=== PATIENT | female | born 1950 | race African-American/Black ===

== ENCOUNTER 2022-11-14 14:17 | Inpatient (IN) | payer MEDICARE, OTHER ==
[~2022-11-14] VITALS: Ht 165.1 cm; Wt 99.5 kg
[~2022-11-14 14:17] MED LIST: FER325T PO; HYDR12.56 PO; OME20T PO; POTA10IN IV; POTA10TA32 PO
[2022-11-14] MEDS ORDERED: methylPREDNISolone SOD SUCC 125 MG/2 ML VL IV ONE (14:30)
[2022-11-14] MEDS ORDERED: LORazepam 2MG/ML-1ML VIAL IV ONE (14:30)
[2022-11-14] MEDS ORDERED: ADENOSINE 6 MG/2 ML INJ IV ONE ×4 (14:45→15:00)
[2022-11-14] MEDS ORDERED: IOHEXOL 350 MG/ML 100ML IJ ONE (14:58)
[2022-11-14] MEDS ORDERED: METOPROLOL TARTRATE 1MG/1ML-5ML VIAL IV ONE ×2 (15:00→15:01)
[2022-11-14] MEDS ORDERED: MAGNESIUM SULFATE 1GM/100ML 100 ML IV ONE (15:00)
[2022-11-14] MEDS ORDERED: ENOXAPARIN SOD 40 MG/0.4 ML SYRINGE SC ONE (15:15)
[2022-11-14] MEDS ORDERED: ASPirin 81 mg TAB PO ONE (15:15)
[2022-11-14] MEDS ORDERED: METOPROLOL SUCCINATE XL 50 MG TAB PO ONE (15:15)
[2022-11-14] MEDS ORDERED: SODIUM CHLORIDE 0.9% 500 ML IV ONE (15:45)
[2022-11-14 15:55] LABS: Alanine Aminotransferase 22 U/L (13-56); Anion Gap 14 (5-15); Aspartate Aminotransferase 22 U/L (15-37); BUN/Creatinine Ratio 13.3 (10.0-20.0); Blood Urea Nitrogen 17 mg/dL (7-18); Calcium 9.3 mg/dL (8.5-10.1); Carbon Dioxide 17 mmol/L (21-32); Chloride 107 mmol/L (98-107); GFR African American 53 mL/min; GFR Non-African American 44 mL/min; Glucose 98 mg/dL (74-106); Magnesium 1.9 mg/dL (1.6-2.6); Potassium 3.3 mmol/L (3.5-5.1); Sodium 138 mmol/L (136-145)
[2022-11-14 15:58] LABS: Alkaline Phosphatase 85 U/L (45-117); Bilirubin, Total 0.9 mg/dL (0.2-1.0); Total Protein 8.3 g/dL (6.4-8.2)
[2022-11-14 16:32] LABS: Basophils # (auto) 0.1 10 ^3/uL (0-0.2); Basophils % (auto) 1.2 % (0.0-2.0); Eosinophils # (auto) 0 10 ^3/uL (0-0.8); Eosinophils % (auto) 0.7 % (0.0-7.0); Hematocrit 36.8 % (36.0-46.0); Hemoglobin 11.4 g/dL (12.2-16.2); Lymphocytes # (auto) 1.4 10 ^3/uL (0.4-5.4); Lymphocytes % (auto) 20.4 % (10.0-50.0); Mean Corpuscular Volume 74.3 fL (80.0-100.0); Monocytes # (auto) 0.6 10 ^3/uL (0-1.3); Monocytes % (auto) 8.8 % (0.0-12.0); Neutrophils # (auto) 4.6 10 ^3/uL (1.6-8.6); Neutrophils % (auto) 68.9 % (37.0-80.0); Nucleated Red Blood Cells % 0.4 %; Red Blood Cells 4.95 10^6/uL (4.0-5.20); Red Cell Distribution Width 15.9 % (11.8-14.3); White Blood Cell 6.7 10^3/uL (4.4-10.8)
[2022-11-14 16:55] LABS: Cholesterol 160 mg/dL (< 200)
[2022-11-14 16:58] LABS: HDL Cholesterol 71 mg/dL (40-59); LDL Cholesterol 80 mg/dL (< 100); Triglycerides 99 mg/dL (< 150)
[2022-11-14] MEDS ORDERED: POTASSIUM CHL 20MEQ/100ML 100 ML IV ONE (17:15)
[2022-11-14] MEDS ORDERED: NITROGLYCERIN 0.4 MG SL TAB SL PRN (19:15)
[2022-11-14] MEDS ORDERED: ACETAMINOPHEN 325 MG TAB PO PRN (19:15)
[2022-11-14] MEDS ORDERED: MORPHINE SULFATE INJ 2 MG/ml SYRG IV PRN (19:15)
[2022-11-15] MEDS: ACETAMINOPHEN 325 MG TAB PO PRN ×2 (00:42→13:41)
[2022-11-15] MEDS ORDERED: TRAZ50TA2 PO (02:54)
[2022-11-15] MEDS ORDERED: ATOR20TA50 PO (02:54)
[2022-11-15] MEDS ORDERED: GABA300C10 PO (02:54)
[2022-11-15] MEDS ORDERED: DULO20CA PO (02:54)
[2022-11-15] MEDS ORDERED: METO25TA5 PO (02:54)
[2022-11-15] MEDS ORDERED: CLOP75TA70 PO (02:54)
[2022-11-15] MEDS ORDERED: BUSP5TAB51 PO ×2 (02:54)
[2022-11-15] MEDS ORDERED: METH750T22 PO (02:54)
[2022-11-15] MEDS ORDERED: GLIP5TAB12 PO (02:54)
[2022-11-15] MEDS ORDERED: DEXTROSE (50%) 50ML SYRG IV PRN (03:15)
[2022-11-15] MEDS: ACCU-CHEK COMFORT CURVE STRIP VI SCH ×4 (06:49→21:19)
[2022-11-15] MEDS: InsuLIN REG 1unit/0.01ml Soln (100units/ml) SC SCH ×4 (06:51→21:22)
[2022-11-15 09:00] VITALS: BP 150/72
[2022-11-15] MEDS ORDERED: OMEPRAZOLE 20MG/10ML ORAL SUSP PO SCH (10:00)
[2022-11-15] MEDS: FERROUS SULFATE 325mg EC TAB PO SCH (10:03)
[2022-11-15] MEDS: PANTOPRAZOLE 40 MG TAB PO SCH (10:04)
[2022-11-15] MEDS: ASPirin 81 mg TAB PO SCH (10:04)
[2022-11-15] MEDS: HCTZ 25 MG TAB PO SCH (10:07)
[2022-11-15] MEDS: METOPROLOL SUCCINATE XL 50 MG TAB PO SCH (10:08)
[2022-11-15] MEDS: ENOXAPARIN SOD 40 MG/0.4 ML SYRINGE SC SCH (10:09)
[2022-11-15 10:55] LABS: Basophils # (auto) 0 10 ^3/uL (0-0.2); Eosinophils # (auto) 0 10 ^3/uL (0-0.8); Monocytes # (auto) 0.6 10 ^3/uL (0-1.3)
[2022-11-15 10:57] LABS: Basophils % (auto) 0.3 % (0.0-2.0); Hemoglobin 10.4 g/dL (12.2-16.2); Lymphocytes # (auto) 0.9 10 ^3/uL (0.4-5.4); Lymphocytes % (auto) 8.3 % (10.0-50.0); Mean Corpuscular Hemoglobin 22.3 pg (28.0-32.0); Mean Corpuscular Hgb Conc. 30.5 g/dL (32.0-36.0); Mean Corpuscular Volume 73.1 fL (80.0-100.0); Monocytes % (auto) 5.2 % (0.0-12.0); Neutrophils # (auto) 9.7 10 ^3/uL (1.6-8.6); Neutrophils % (auto) 86.2 % (37.0-80.0); Nucleated Red Blood Cells % 0.1 %; Red Blood Cells 4.66 10^6/uL (4.0-5.20); Red Cell Distribution Width 15.7 % (11.8-14.3); White Blood Cell 11.2 10^3/uL (4.4-10.8)
[2022-11-15 11:13] LABS: Calcium 9.4 mg/dL (8.5-10.1); Potassium 4.5 mmol/L (3.5-5.1)
[2022-11-15 11:15] LABS: BUN/Creatinine Ratio 24.4 (10.0-20.0)
[2022-11-15] MEDS ORDERED: FUROSEMIDE 20 MG/2 ML VIAL IV ONE (11:30)
[2022-11-15] MEDS: IPRATROPIUM BROM 0.5 MG/2.5ML INH SOL NEB SCH ×3 (11:51→23:51)
[2022-11-15] MEDS: LEVALBUTEROL HCL 1.25 MG/3 ML NEB NEB SCH ×3 (11:51→23:50)
[2022-11-15 12:59] LABS: Urine Bacteria FEW /hpf (None Seen); Urine Blood Negative /uL (Negative); Urine Mucus FEW (None Seen); Urine Specific Gravity 1.041 (1.001-1.035); Urine WBC <1 /hpf (0 - 5)
[2022-11-15 13:00] VITALS: BP 149/74
[2022-11-15 17:00] VITALS: BP 128/89
[2022-11-15] MEDS: FUROSEMIDE 20 MG/2 ML VIAL IV SCH (17:38)
[2022-11-15 22:00] VITALS: BP 115/50
[2022-11-15] MEDS ORDERED: ZOLPIDEM TARTRATE 5 MG TAB PO PRN (23:15)
[2022-11-16 05:00] VITALS: BP 120/82
[2022-11-16] MEDS: FUROSEMIDE 20 MG/2 ML VIAL IV SCH (05:25)
[2022-11-16] MEDS: IPRATROPIUM BROM 0.5 MG/2.5ML INH SOL NEB SCH ×3 (06:19→18:00)
[2022-11-16] MEDS: LEVALBUTEROL HCL 1.25 MG/3 ML NEB NEB SCH ×3 (06:19→18:00)
[2022-11-16] MEDS: ACCU-CHEK COMFORT CURVE STRIP VI SCH ×4 (06:39→21:35)
[2022-11-16] MEDS: InsuLIN REG 1unit/0.01ml Soln (100units/ml) SC SCH ×4 (06:41→21:40)
[2022-11-16 06:46] LABS: BUN/Creatinine Ratio 22.4 (10.0-20.0); Potassium 3.7 mmol/L (3.5-5.1)
[2022-11-16] MEDS: INSULIN LANTUS (GLARGINE) 1 /0.01ml (100units/ml) SC SCH (06:50)
[2022-11-16 06:53] LABS: Calcium 9.4 mg/dL (8.5-10.1); Magnesium 2.2 mg/dL (1.6-2.6); Phosphorus 4.5 mg/dL (2.5-4.90)
[2022-11-16 08:00] VITALS: BP 134/64
[2022-11-16] MEDS ORDERED: AMIODARONE HCL 150 MG in D5W 5% 100 ML IV ONE (08:30)
[2022-11-16] MEDS ORDERED: AMIODARONE 450mg/250ml AE 250 ML IV SCH ×3 (08:45→14:45)
[2022-11-16] MEDS: ENOXAPARIN SOD 40 MG/0.4 ML SYRINGE SC SCH (08:53)
[2022-11-16] MEDS: PANTOPRAZOLE 40 MG TAB PO SCH (08:54)
[2022-11-16] MEDS: ASPirin 81 mg TAB PO SCH (08:54)
[2022-11-16] MEDS: HCTZ 25 MG TAB PO SCH (08:54)
[2022-11-16] MEDS: FERROUS SULFATE 325mg EC TAB PO SCH (08:54)
[2022-11-16] MEDS: METOPROLOL SUCCINATE XL 50 MG TAB PO SCH ×3 (08:55→18:00)
[2022-11-16 09:00] VITALS: BP 134/64
[2022-11-16] MEDS ORDERED: INSULIN LANTUS (GLARGINE) 1 /0.01ml (100units/ml) SC SCH (10:00)
[2022-11-16] MEDS ORDERED: LORazepam 0.5 MG TAB PO PRN (10:30)
[2022-11-16] MEDS ORDERED: AMIODARONE HCL 200 MG TAB PO ONE (10:30)
[2022-11-16 13:00] VITALS: BP 107/71
[2022-11-16 17:00] VITALS: BP 114/63
[2022-11-16] MEDS: APIXABAN 5 MG TAB PO SCH (21:35)
[2022-11-16 22:00] VITALS: BP 134/89
[2022-11-16] MEDS ORDERED: AMIODARONE HCL 200 MG TAB PO SCH (22:00)
[2022-11-17] MEDS: IPRATROPIUM BROM 0.5 MG/2.5ML INH SOL NEB SCH ×3 (00:33→12:04)
[2022-11-17 05:00] VITALS: BP 118/59
[2022-11-17] MEDS: ACCU-CHEK COMFORT CURVE STRIP VI SCH ×2 (06:13→11:30)
[2022-11-17] MEDS: InsuLIN REG 1unit/0.01ml Soln (100units/ml) SC SCH ×2 (06:16→12:38)
[2022-11-17] MEDS: INSULIN LANTUS (GLARGINE) 1 /0.01ml (100units/ml) SC SCH (06:21)
[2022-11-17 07:02] LABS: Basophils # (auto) 0.1 10 ^3/uL (0-0.2); Eosinophils # (auto) 0.2 10 ^3/uL (0-0.8); Eosinophils % (auto) 2.5 % (0.0-7.0); Hemoglobin 10.9 g/dL (12.2-16.2); Lymphocytes # (auto) 1.6 10 ^3/uL (0.4-5.4); Mean Corpuscular Volume 72.6 fL (80.0-100.0); Monocytes # (auto) 0.6 10 ^3/uL (0-1.3); Neutrophils # (auto) 4.4 10 ^3/uL (1.6-8.6); Nucleated Red Blood Cells % 0.1 %
[2022-11-17 07:05] LABS: Hematocrit 34.3 % (36.0-46.0); Lymphocytes % (auto) 23.5 % (10.0-50.0); Mean Corpuscular Hemoglobin 23.2 pg (28.0-32.0); Mean Corpuscular Hgb Conc. 31.9 g/dL (32.0-36.0); Red Blood Cells 4.73 10^6/uL (4.0-5.20); Red Cell Distribution Width 15.6 % (11.8-14.3); White Blood Cell 6.9 10^3/uL (4.4-10.8)
[2022-11-17 07:21] LABS: Potassium 3.1 mmol/L (3.5-5.1)
[2022-11-17 07:30] LABS: BUN/Creatinine Ratio 21.1 (10.0-20.0); Calcium 9.1 mg/dL (8.5-10.1); Magnesium 2.2 mg/dL (1.6-2.6)
[2022-11-17] MEDS: LEVALBUTEROL HCL 1.25 MG/3 ML NEB NEB SCH ×3 (08:02→12:04)
[2022-11-17] MEDS: HCTZ 25 MG TAB PO SCH (09:08)
[2022-11-17] MEDS: PANTOPRAZOLE 40 MG TAB PO SCH (09:08)
[2022-11-17] MEDS: ASPirin 81 mg TAB PO SCH (09:09)
[2022-11-17] MEDS: METOPROLOL SUCCINATE XL 50 MG TAB PO SCH (09:09)
[2022-11-17] MEDS: APIXABAN 5 MG TAB PO SCH (09:09)
[2022-11-17] MEDS: FERROUS SULFATE 325mg EC TAB PO SCH (09:10)
[2022-11-17] MEDS ORDERED: POTASSIUM CHL 20 Meq TABLET PO ONE (11:15)
[2022-11-17] MEDS ORDERED: ASPI-325 PO (11:43)
[2022-11-17] MEDS ORDERED: APIX5TAB PO (11:43)
[2022-11-17] MEDS ORDERED: AMIO200T4 PO (11:44)
[2022-11-17 12:49] VITALS: BP 127/66
[2022-11-17 13:42] VITALS: BP 118/59
== END 2022-11-17 15:35 | disposition home or self-care (01) | DRG 291 ==
LOC: ER 14:17 → EDSEX 14:17 → EDBD 14:17 → TELE-EAST 19:04 → ER 20:36 → TELE-EAST 21:24
PROVIDERS: ADMIT Nurse Practitioner Family; ATTEND Internal Medicine
DX: I11.0 Hypertensive heart disease with heart failure (principal); I50.31 Acute diastolic (congestive) heart failure; J96.01 Acute respiratory failure with hypoxia; I47.1 Supraventricular tachycardia; N17.9 Acute kidney failure, unspecified; K50.90 Crohn's disease, unspecified, without complications; I48.92 Unspecified atrial flutter; E11.9 Type 2 diabetes mellitus without complications; E66.01 Morbid (severe) obesity due to excess calories; E78.5 Hyperlipidemia, unspecified; E87.6 Hypokalemia; J45.909 Unspecified asthma, uncomplicated; F41.9 Anxiety disorder, unspecified; Z86.73 Personal history of transient ischemic attack (TIA), and cerebral infarction without residual deficits; Z90.710 Acquired absence of both cervix and uterus; Z82.49 Family history of ischemic heart disease and other diseases of the circulatory system; Z83.3 Family history of diabetes mellitus; Z79.84 Long term (current) use of oral hypoglycemic drugs; Z79.82 Long term (current) use of aspirin; Z79.899 Other long term (current) drug therapy; Z68.36 Body mass index [BMI] 36.0-36.9, adult
CPT/HCPCS: 36415; 36600; 71045; 71275; 80048; 80053; 80061; 81001; 82805; 82962; 83036; 83735; 83880; 84100; 84443; 84484; 85025; 93005; 93306; 94640; 96372; 96374; 96375; G0378; J0153; J1815; J3480; J7060

== ENCOUNTER 2023-05-04 11:23 | Emergency (ER) | payer OTHER ==
[~2023-05-04] VITALS: Ht 175.3 cm; Wt 96.3 kg
[~2023-05-04 11:23] MED LIST changes: +AMIO200T13 PO; +APIX5TAB PO; +ASPI-325 PO; +ATOR20TA50 PO; +BUSP5TAB51 PO; +CLOP75TA70 PO; +DULO20CA PO; +GABA-1250 PO; +GLIP5TAB12 PO; -HYDR12.56 PO; +HYDR12.59 PO; +METH-1182 PO; +METO25TA5 PO; +POTA-228 PO; -POTA10TA32 PO; +TRAZ-227 PO
[2023-05-04] MEDS ORDERED: HYDROcodone-ACET 5/325MG TAB PO ONE (13:45)
[2023-05-04] MEDS ORDERED: BACL5TAB2 PO (13:49)
[2023-05-04] MEDS ORDERED: TRAM50TA2 PO (14:03)
[2023-05-04 14:14] VITALS: BP 135/67; PULSE 85; RESP 18; TEMP 98.2; O2SAT 96
== END 2023-05-04 13:49 | disposition home or self-care (01) ==
LOC: ER 11:23
DX: M16.11 Unilateral primary osteoarthritis, right hip (principal); M17.11 Unilateral primary osteoarthritis, right knee; M51.36 Other intervertebral disc degeneration, lumbar region; I10 Essential (primary) hypertension; E11.9 Type 2 diabetes mellitus without complications; E78.5 Hyperlipidemia, unspecified; Z86.73 Personal history of transient ischemic attack (TIA), and cerebral infarction without residual deficits; Z90.710 Acquired absence of both cervix and uterus; Z88.8 Allergy status to other drugs, medicaments and biological substances; Z79.82 Long term (current) use of aspirin; Z79.899 Other long term (current) drug therapy
CPT/HCPCS: 72100; 73502; 73562